=== PATIENT | female | born 1980 | race Caucasian/White ===

== ENCOUNTER 2025-01-09 17:59 | Emergency (ER) | payer SELFPAY ==
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
[2025-01-09 18:26] VITALS: BP 120/60; BP 120/66; PULSE 95; RESP 16; TEMP 36.4; O2SAT 98; BMI 24.9
[2025-01-09 18:37] VITALS: BP 120/60; PULSE 95; RESP 16; TEMP 36.4; O2SAT 98
--- OUTSIDE RECORDS SUMMARY | 2025-01-09 18:40 | XMS_ITS | Clinical Summary ---
Author Organization [facility] Address [address] [place] [address] Phone Care Team Providers Care Track Laying Equipment Operator Name Role Phone [email or web address] montiel Primary Care Provider [phone] Encounters Date Type Department Care Team Description 11/03/2024 11:30 AM EDT - 11/03/2024 11:59 PM EDT Hospital Encounter [facility] Ultrasound [address] [place] [address] Thyroid nodule Discharge Disposition: Home or Self Care from Last 3 Months Medical History Medical History Date Comments Asthma DX:Asthma Pneumonia DX:Pneumonia Pleurisy DX:Pleurisy Social History Tobacco Use Types Packs/Day Years Used Date Smoking Tobacco: Never Smokeless Tobacco: Never Alcohol Use Standard Drinks/Week Comments Yes 0 (1 standard drink = 0.6 oz pur e alcohol) Comments Unknown Sex and Gender Information Value Date Recorded Sex Assigned at Female 10/30/2024 2:18 PM EDT Legal Sex Female 9:48 PM EST Gender Identity Female 10/30/2024 2:18 PM EDT Sexual Orientation Straight 10/30/2024 2: 18 PM EDT Obstetrics History Last Filed Vital Signs Vital Sign Reading Time Taken Comments Blood Pressure 121/70 10/29/2023 8:32 AM EDT Sitting L Arm Pulse 72 10/29/2023 8:32 AM EDT Temperature - - Respiratory Rate - - Oxygen Saturation - - Inhaled Oxygen Concentration - - Weight 77.4 kg (170 lb 9.6 oz) 10/29/2023 8:32 AM EDT Height 154.9 cm (5' 1 ) 10/29/2023 8:32 AM EDT Body Mass Index 32.23 10/29/2023 8:32 AM EDT Plan of Treatment Health Maintenance Due Date Last Done Comments Breast Cancer Screening 1979 DTaP,Tdap,and Td Vaccines (1 - Tdap) 1998 Hepatitis B Vaccines (1 of 3 - 19+ 3-dose series) 1998 Cervical Cancer Screening: P ap Smear 01/23/2000 Colorectal Cancer Screening: Colonoscopy 07/11/2022 Depression Screening 07/11/2022 HIV Screening 07/11/2022 Hepatitis C Screening 07/11/2022 Social Influencers of Health Screening 07/11/2022 COVID-19 Vaccine (3 - 2023-2 5 season) 2024 01/17/2021, 12/20/2020 Influenza Vaccine (Season Ended) 2025 Cholesterol Screening (Lipid Panel) 12/04/2029 12/04/2024 HIB Vaccines Aged Out No longer eligi ble based on patient's age to complete this topic HPV Vaccines Aged Out No longer eligi ble based on patient's age to complete this topic Hepatitis A Vaccines Aged Out No long er eligible based on patient's age to complete this topic IPV Vaccines Aged Out No longer eligi ble based on patient's age to complete this topic MMR Vaccines Aged Out No longer eligi ble based on patient's age to complete this topic Meningococcal ACWY Vaccine Aged Out N o longer eligible based on patient's age to complete this topic Meningococcal B Vaccine Aged Out No l onger eligible based on patient's age to complete this topic Pneumococcal Vaccine: Pediatrics (0 to 5 Years) and At-Risk Patients (6 to 64 Years) Aged Out No longer eligible b ased on patient's age to complete this topic RSV Immunization Patients Under 20 months Aged Out No longer eligible b ased on patient's age to complete this topic Varicella Vaccines Aged Out No longer eligible based on patient's age to complete this topic Procedures Procedure Name Priority Date/Time Associated Diagnosis Comments CBC WITH AUTO DIFFERENTIAL Routine 12/04/2024 1:59 PM EDT Laboratory tests ordered as part of a complete physical exam (CPE) BRANDEN (cerebral atherosclerosis) Nausea Anxiety HLD (hyperlipidemia) ADHD HEMOGLOBIN A1C Routine 12/04/2024 1:59 PM EDT Laboratory tests ordered as part of a complete physical exam (CPE) BRANDEN (cerebral atherosclerosis) Nausea Anxiety HLD (hyperlipidemia) ADHD COMPREHENSIVE METABOLIC PANEL Routine 12/04/2024 1:59 PM EDT Laboratory tests ordered as part of a complete physical exam (CPE) BRANDEN (cerebral atherosclerosis) Nausea Anxiety HLD (hyperlipidemia) ADHD CBC AND DIFFERENTIAL Routine 12/04/2024 1:59 PM EDT Laboratory tests ordered as part of a complete physical exam (CPE) BRANDEN (cerebral atherosclerosis) Nausea Anxiety HLD (hyperlipidemia) ADHD THYROID STIMULATING HORMONE Routine 12/04/2024 1:59 PM EDT Laboratory tests ordered as part of a complete physical exam (CPE) BRANDEN (cerebral atherosclerosis) Nausea Anxiety HLD (hyperlipidemia) ADHD LIPID PANEL WITH REFLEX TO DIRECT LDL Routine 12/04/2024 1:59 PM EDT Laboratory tests ordered as part of a complete physical exam (CPE) BRANDEN (cerebral atherosclerosis) Nausea Anxiety HLD (hyperlipidemia) ADHD US HEAD NECK SOFT TISSUE Routine 11/03/2024 12:05 PM EDT Thyroid nodule from Last 3 Months Results * (ABNORMAL) Lipid panel with reflex to direct LDL (12/04/2024 1:59 PM EDT) Cholesterol 200 0 - 200 mg/dL LAB CHEMISTRY METHOD 12/04/2024 5:42 PM EDT [facility] Triglycerides 111 0 - 150 mg/dL LAB CHEMISTRY METHOD 12/04/2024 5:42 PM EDT [facility] HDL 53 >=40 mg/dL LAB CHEMISTRY METHOD 12/04/2024 5:42 PM EDT [facility] LDL Calculated 125(H) 0 - 100 mg/dL LAB CHEMISTRY METHOD 12/04/2024 5:42 PM EDT [facility] VLDL Cholesterol Janes 22.2 mg/dL LAB CHEMISTRY METHOD 12/04/2024 5:42 PM EDT [facility] Non HDL Chol. (LDL+VLDL) 147(H) <145 mg/dL LAB CHEMISTRY METHOD 12/04/2024 5:42 PM EDT [facility] Chol/HDL Ratio 3.8 0.0 - 4.4 LAB CHEMISTRY METHOD 12/04/2024 5:42 PM EDT [facility] Blood Venous blood specimen / Unknown Venipuncture / Unknown 12/04/2024 1:59 PM EDT 12/04/2024 1:59 PM EDT us [facility] LAB BLOOD ORDERABLES Final Resul t [facility] [address] [place] [address], * (ABNORMAL) CBC auto differential (12/04/2024 1:59 PM EDT) WBC 7.8 4.8 - 10.8 K/mcL LAB HEMETOLOGY METHOD 12/04/2024 3:32 PM EDT [facility] RBC 4.40 3.80 - 4.80 M/mcL LAB HEMETOLOGY METHOD 12/04/2024 3:32 PM EDT [facility] Hemoglobin 13.8 11.5 - 16.0 g/dL LAB HEMETOLOGY METHOD 12/04/2024 3:32 PM EDT [facility] Hematocrit 42.0 35.0 - 47.0 % LAB HEMETOLOGY METHOD 12/04/2024 3:32 PM EDT [facility] MCV 95.2 79.0 - 98.0 FL LAB HEMETOLOGY METHOD 12/04/2024 3:32 PM EDT [facility] MCH 31.3 27.0 - 32.0 pcg LAB HEMETOLOGY METHOD 12/04/2024 3:32 PM EDT [facility] MCHC 32.9 32.0 - 37.0 g/dL LAB HEMETOLOGY METHOD 12/04/2024 3:32 PM EDT [facility] RDW 12.9 11.0 - 15.0 % LAB HEMETOLOGY METHOD 12/04[facility]24 [facility] Plate[facility] 312 130 - 400 K/mcL LAB HEMETOLOGY METHOD 12/04/2024 3:32 PM [facility] MPV 12.3(H) 7.0 - 11.0 FL LAB HEMETOLOGY METHOD 12/04/2024 3:32 [facility] NRBC 0.0 <1.0 % LAB HEMETOLOGY METHOD 12/04/2024 3:32 [facility] NRBC Absolute 0.00 <0.10 K/mcL LAB HEMETOLOGY METHOD 12/04/2024 3:32 PM [facility] Neutrophils Relative 57.2 % LAB HEMETOLOGY METHOD 12/04/2024 3:32 PM [facility] Lymphocytes Relative 33.2 % LAB HEMETOLOGY METHOD 12/04/2024 3:32 PM [facility] Monocytes Relative 7.3 % LAB HEMETOLOGY METHOD 12/04/2024 3:32 PM [facility] Eosinophils Relative 1.4 % LAB HEMETOLOGY METHOD 12/04/2024 3:32 PM [facility] Basophils Relative 0.8 % LAB HEMETOLOGY METHOD 12/04/2024 3:32 PM [facility] Immature Granulocytes Relative 0.1 % LAB HEMETOLOGY METHOD 12/04/2024 3:32 PM [facility] Neutrophils Absolute 4.45 1.50 - 7.00 K/mcL LAB HEMETOLOGY METHOD 12/04/2024 3:32 [facility] Lymphocytes Absolute 2.59 1.00 - 5.00 K/mcL LAB HEMETOLOGY METHOD 12/04/2024 3:32 PM EDT [facility] Monocytes Absolute 0.57 0.20 - 1.00 K/mcL LAB HEMETOLOGY METHOD 12/04/2024 3:32 PM EDT [facility] Eosinophils Absolute 0.11 0.00 - 0.50 K/[facility] LAB HEMETOLOGY METHOD 12/04/2024 3:32 PM EDT [facility] Basophils Absolute 0.06 0.00 - 0.20 K/[facility] LAB HEMETOLOGY METHOD 12/04/2024 3:32 PM EDT [facility] Immature Granulocytes Absolute 0.01 0.00 - 0.03 K/[facility] LAB HEMETOLOGY METHOD 12/04/2024 3:32 PM EDT [facility] Blood Venous blood specimen / Unknown Venipuncture / Unknown 12/04/2024 1:59 PM EDT 12/04/2024 1:59 PM EDT Recommend LAB BLOOD ORDERABLES Final Resul t Performing Organization Address City/[facility]/ZIP Co de Phone Number [facility] [address] [place] [address], [place] [phone] * Thyroid stimulating hormone (12/04/2024 1:59 PM EDT) TSH 0.48 0.40 - 4.00 mcIU/mL LAB CHEMISTRY METHOD 12/04/2024 6:47 PM EDT [facility] Blood Venous blood specimen / Unknown Venipuncture / Unknown 12/04/2024 1:59 PM EDT 12/04/2024 1:59 PM EDT Recommend LAB BLOOD ORDERABLES Final Resul t [facility] [address] [place] [address], [place] [phone] * Hemoglobin A1c (12/04/2024 1:59 PM EDT) [facility] Hemoglobin A1C 5.2 <6.5 % LAB CHEMISTRY METHOD 12/04/2024 11:24 PM EDT [facility] Mean Bld Glu Estim. 103 mg/dL LAB CHEMISTRY METHOD 12/04/2024 11:24 PM EDT [facility] Blood Venous blood specimen / Unknown Venipuncture / Unknown 12/04/2024 1:59 PM EDT 12/04/2024 1:59 PM EDT [facility] LAB BLOOD ORDERABLES Final Resul t [facility] [address] [place] [address], * (ABNORMAL) Comprehensive metabolic panel (12/04/2024 1:59 PM EDT) [facility] Sodium 139 133 - 145 mmol/L LAB CHEMISTRY METHOD 12/04/2024 5:42 PM T [facility] Potassium 3.4(L) 3.5 - 5.5 mmol/L LAB CHEMISTRY METHOD 12/04/2024 5:42 PM [facility] Chloride 103 96 - 110 mmol/L LAB CHEMISTRY METHOD 12/04/2024 5:42 PM T [facility] CO2 29 21 - 32 mmol/L LAB CHEMISTRY METHOD 12/04/2024 5:42 PM EDT [facility] Anion Gap 7 3 - 11 LAB CHEMISTRY METHOD 12/04/2024 5:42 PM [facility] Glucose 96 70 - 100 mg/dL LAB CHEMISTRY METHOD 12/04/2024 5:42 PM [facility] BUN 12 5 - 25 mg/dL LAB CHEMISTRY METHOD 12/04/2024 5:42 PM T [facility] Creatinine 0.67 0.50 - 1.10 mg/dL LAB CHEMISTRY METHOD 12/04/2024 5:42 PM T [facility] eGFR 110 >=60 mL/min/1. 73m2 LAB CHEMISTRY METHOD 12/04/2024 5:42 PM T [facility] Comment:Calculation based on the??Chronic Kidney Disease Epidemiology Collaboration (CKD-EPI) equation refit??without adjustment for race. BUN/Creatinine Ratio 17.9 LAB CHEMISTRY METHOD 12/04/2024 5:42 PM EDT [facility] Calcium 9.7 8.5 - 10.5 mg/dL LAB CHEMISTRY METHOD 12/04/2024 5:42 PM [facility] AST (SGOT) 27 10 - 42 unit/L LAB CHEMISTRY METHOD 12/04/2024 5:42 PM [facility] ALT (SGPT) 80(H) 10 - 60 unit/L LAB CHEMISTRY METHOD 12/04/2024 5:42 PM [facility] Alkaline Phosphatase 83 42 - 121 unit/L LAB CHEMISTRY METHOD 12/04/2024 5:42 PM [facility] Total Protein 7.8 6.0 - 8.0 g/dL LAB CHEMISTRY METHOD 12/04/2024 5:42 PM [facility] Albumin 4.2 3.2 - 5.0 g/dL LAB CHEMISTRY METHOD 12/04/2024 5:42 PM T [facility] Total Bilirubin 1.3 0.0 - 1.4 mg/dL LAB CHEMISTRY METHOD 12/04/2024 5:42 PM [facility] Blood Venous blood specimen / Unknown Venipuncture / Unknown 12/04/2024 1:59 PM EDT 12/04/2024 1:59 PM EDT us [facility] LAB BLOOD ORDERABLES Final Resul t [facility] [address] [place] [address], [place] [phone] * US Head Neck Soft Tissue (11/03/2024 12:05 PM EDT) Anatomical Region Laterality Modality Head and Neck Ultrasound 11/07/2024 12:1 5 PM EDT Impressions 11/07/2024 12:18 PM EDT No significant change in a subcentimeter TI RADS 4 nodule in the right thyroid lobe, requiring no specific follow-up. [facility] PA ([id number]) -------- FINAL REPORT -------- Dictated By: June Lorenzana Dictated Date: 11/07/2024 12:15 ET Assigned Physician: June Lorenzana Reviewed and Electronically Signed By: June Lorenzana Signed Date: 11/07/2024 12:18 ET Workstation ID: [id number] Transcribed By: Self Edit Transcribed Date: 11/07/2024 12:15 ET Narrative 11/07/2024 12:18 PM EDT HISTORY: Follow-up thyroid nodule. COMPARISON: 09/17/23 FINDINGS: High resolution real-time imaging of the thyroid gland was performed. RIGHT LOBE: The right lobe remains normal in size, measuring 4.9 cm in length by 1.5 cm in depth by 1.2 cm in width. A 7 x 4 x 5 mm circumscribed, mildly hypoechoic solid nodule is again seen in the upper pole (TI RADS 4), without significant change. LEFT LOBE: The left lobe remains normal in size, measuring 5.6 cm in length by 1.1 cm in depth by 1.4 cm in width. The parenchyma is homogeneous. No focal nodule is seen. ISTHMUS: The isthmus is homogeneous and normal in thickness, measuring 0.3 cm. Procedure Note June Lorenzana MD - 11/07/2024 HISTORY: Follow-up thyroid nodule. COMPARISON: 09/17/23 FINDINGS: High resolution real-time imaging of the thyroid gland was performed. RIGHT LOBE: The right lobe remains normal in size, measuring 4.9 cm in length by 1.5cm in depth by 1.2 cm in width. A 7 x 4 x 5 mm circumscribed, mildly hypoechoic solid nodule is again seenin the upper pole (TI RADS 4), without significant change. LEFT LOBE: The left lobe remains normal in size, measuring 5.6 cm in length by 1.1 cmin depth by 1.4 cm in width. The parenchyma is homogeneous. No focal nodule is seen. ISTHMUS: The isthmus is homogeneous and normal in thickness, measuring 0.3 cm. IMPRESSION: No significant change in a subcentimeter TI RADS 4 nodule in the rightthyroid lobe, requiring no specific follow-up. [facility]elerad PA ([id number]) -------- FINAL REPORT -------- Dictated By: June Lorenzana Dictated Date: 11/07/2024 12:15 ET Assigned Physician: June Lorenzana Reviewed and Electronically Signed By: June Lorenzana Signed Date: 11/07/2024 12:18 ET Workstation ID: [id number] Transcribed By: Self Edit Transcribed Date: 11/07/2024 12:15 ET us Lexa Hernandez DO IM US PROCEDURES Final Resul t from Last 3 Months Insurance [employer] Care Teams Track Laying Equipment Operator Relationship Specialty Start Date End Date Lexa Hernandez DO [address] [place] [id number] PCP - General 07/22/23
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
[2025-01-09 20:46] VITALS: BP 120/60; PULSE 95; RESP 16; TEMP 36.4; O2SAT 98
[2025-01-09 20:54] VITALS: BP 120/60; PULSE 95; RESP 16; TEMP 36.4; O2SAT 98
== END 2025-01-09 20:54 | disposition home or self-care (01) ==
PROVIDERS: Emergency Provider Emergency Medicine Emergency Medical Services
DX: S01.91XA Laceration without foreign body of unspecified part of head, initial encounter (principal); S09.90XA Unspecified injury of head, initial encounter; V43.52XA Car driver injured in collision with other type car in traffic accident, initial encounter; Y93.89 Activity, other specified; Y92.414 Local residential or business street as the place of occurrence of the external cause; Y99.9 Unspecified external cause status
CPT/HCPCS: 12013; 70450; 72125; 99284

== ENCOUNTER → 2025-01-09 18:50 | Outpatient (BNV) | payer SELFPAY | PROVIDERS: Emergency Provider Emergency Medicine Emergency Medical Services; Visit Provider Radiology Diagnostic Radiology | DX: M54.2 Cervicalgia (principal); J01.00 Acute maxillary sinusitis, unspecified; J32.0 Chronic maxillary sinusitis | CPT/HCPCS: 70450; 72125 ==